=== PATIENT | male | born 1985 | race Caucasian/White ===

== ENCOUNTER 2017-01-26 08:13 | Inpatient (IN) | payer MEDICAID ==
[~2017-01-26] VITALS: Ht 165.1 cm; Wt 76.0 kg
[2017-01-26] MEDS ORDERED: IBUP-1547 PO (08:23)
[2017-01-26 08:40] LABS: BASOPHILS % (AUTO) 1.2 % (0.0-2.0); EOSINOPHILS % (AUTO) 1.3 % (1.0-6.0); HEMATOCRIT 49.2 % (41-53); HEMOGLOBIN 15.8 g/dL (13.5-17.5); LYMPHOCYTES # (AUTO) 2.7 K/uL (1.0-4.8); LYMPHOCYTES % (AUTO) 33.3 % (22.0-44.0); MEAN CORPUSCULAR HEMOGLOBIN 29.2 pg (26.0-34.0); MEAN CORPUSCULAR HGB CONC 32.1 G/dL (31.0-37.0); MEAN CORPUSCULAR VOLUME 91 fL (80-100); MONOCYTES # (AUTO) 0.6 K/uL (0.1-1.0); MONOCYTES % (AUTO) 7.2 % (2.0-9.0); NEUTROPHILS # (AUTO) 4.6 K/uL (1.8-7.7); PLATELET COUNT (AUTO) 314 K/uL (150-450); RED BLOOD CELL COUNT(AUTO) 5.41 MIL/uL (4.50-5.90); RED CELL DISTRIBUTION WIDTH 12.6 % (11.5-14.5); WHITE BLOOD COUNT (AUTO) 8.1 K/uL (4.5-11.0)
[2017-01-26 08:51] LABS: ANION GAP 9 mmol/L (8-16); CALCIUM, TOTAL 8.9 mg/dL (8.8-10.5); CARBON DIOXIDE 28 mmol/L (22-29); CHLORIDE 100 mmol/L (98-107); CREATININE 0.96 mg/dL (0.60-1.30); GLOMERULAR FILTR. RATE CALC > 60 mL/min (>60); POTASSIUM 3.9 mmol/L (3.5-5.1); SODIUM SERUM 137 mmol/L (136-145); UREA NITROGEN, BLOOD 19 mg/dL (7-18)
[2017-01-26 08:58] LABS: ALANINE AMINOTRANSFERASE 58 U/L (12-78); ALBUMIN 4.2 g/dL (3.4-5.0); ASPARTATE AMINOTRANSFERASE 22 U/L (15-37); BILIRUBIN,TOTAL 0.6 mg/dL (0.1-1.0); TOTAL PROTEIN, SERUM 8.4 g/dL (6.4-8.2)
[2017-01-26] MEDS ORDERED: SODIUM CHLORIDE 0.9% 1,000 ML IV ONE (09:15)
[2017-01-26] MEDS ORDERED: ONDANSETRON HCL 4 MG/2 ML VIAL IVP PRN ×2 (09:15→11:00)
[2017-01-26] MEDS ORDERED: MORPHINE SULFATE 4 MG/ML SYRINGE IVP PRN (09:15)
[2017-01-26] MEDS ORDERED: SODIUM CL IRRIG SOLN BAG 3,000 ML IRRIG ONE (09:33)
[2017-01-26] MEDS: BUPIVACAINE HCL/PF 0.5% 30 ML VIAL ONE ×2 (10:12→11:30)
[2017-01-26] MEDS ORDERED: MORPHINE SULFATE 2 MG/ML SYRINGE IVP PRN (11:00)
[2017-01-26] MEDS ORDERED: HYDROCODONE/ACETAMINOPHEN 5-325 MG TABLET PO PRN (11:00)
[2017-01-26] MEDS ORDERED: ACETAMINOPHEN 325 MG TABLET PO PRN (11:00)
[2017-01-26] MEDS ORDERED: BISACODYL 10 MG RECTAL RECTAL SUPPOSITORY PR PRN (11:00)
[2017-01-26] MEDS ORDERED: MAGNESIUM HYDROXIDE SUSPENSION 30 ML UDCUP PO PRN (11:00)
[2017-01-26] MEDS ORDERED: ZOLPIDEM TARTRATE 5 MG TABLET PO PRN ×2 (11:00→12:00)
[2017-01-26] MEDS ORDERED: RINGERS SOLUTION,LACTATED 1,000 ML IV ONE (11:07)
[2017-01-26] MEDS ORDERED: CYCLOBENZAPRINE HCL 10 MG TABLET PO PRN (11:15)
[2017-01-26] MEDS ORDERED: FentaNYL CITRATE-PF 100 MCG/2 ML VIAL IVP PRN ×2 (11:15→12:00)
[2017-01-26] MEDS ORDERED: MEPERIDINE-PF 25 MG/ML SYRINGE IVP PRN (11:15)
[2017-01-26] MEDS ORDERED: MUPIROCIN CALCIUM 2% 22 GM OINTMENT ONE (11:33)
[2017-01-26] MEDS ORDERED: MEPERIDINE-PF 25 MG/ML SYRINGE ONE (12:00)
[2017-01-26] MEDS ORDERED: MIDAZOLAM HCL 2 MG/2 ML VIAL IVP ONE (12:00)
[2017-01-26] MEDS ORDERED: HYDROmorphone 2 MG/ML SYRINGE IVP ONE (12:00)
[2017-01-26] MEDS ORDERED: FentaNYL CITRATE-PF 250 MCG/5 ML VIAL IVP ONE (12:00)
[2017-01-26] MEDS ORDERED: OxyCODONE HCL/ACETAMINOPHEN 5-325 MG TABLET PO PRN (12:00)
[2017-01-26] MEDS: HYDROmorphone 2 MG/ML SYRINGE IVP PRN ×6 (12:10→23:32)
[2017-01-26] MEDS ORDERED: ACETAMINOPHEN 1000 MG/ISO-OSM 100 ML IV ONE (12:40)
[2017-01-26] MEDS: ACETAMINOPHEN 1000 MG/ISO-OSM 100 ML IV SCH ×2 (12:42→18:57)
[2017-01-26 13:30] VITALS: BP 141/85
[2017-01-26] MEDS: HEPARIN SODIUM,PORCINE 5,000 UNITS/ML VIAL SQ SCH ×2 (15:47→23:32)
[2017-01-26 16:00] VITALS: BP 131/74
[2017-01-26] MEDS: CeFAZolin 1 GM/DEXTROSE 50 ML IV SCH (17:11)
[2017-01-26 19:30] VITALS: BP 144/87
[2017-01-26] MEDS: OXYGEN THERAPY IH SCH (20:00)
[2017-01-26] MEDS: DOCUSATE SODIUM 100 MG CAPSULE PO SCH (20:11)
[2017-01-26 23:36] VITALS: BP 148/90
[2017-01-27] VITALS (7 sets, daily range): BP systolic 118–149; BP diastolic 72–94
[2017-01-27] MEDS: CeFAZolin 1 GM/DEXTROSE 50 ML IV SCH (01:46)
[2017-01-27] MEDS: ACETAMINOPHEN 1000 MG/ISO-OSM 100 ML IV SCH ×2 (03:12→11:55)
[2017-01-27] MEDS: HYDROmorphone 2 MG/ML SYRINGE IVP PRN ×3 (03:21→15:18)
[2017-01-27] MEDS: OXYGEN THERAPY IH SCH (08:00)
[2017-01-27] MEDS ORDERED: PANTOPRAZOLE SODIUM 40 MG DR TABLET PO SCH (09:00)
[2017-01-27] MEDS ORDERED: ENOXAPARIN SODIUM 40 MG/0.4 ML PF SYRINGE SQ SCH (09:00)
[2017-01-27] MEDS: DOCUSATE SODIUM 100 MG CAPSULE PO SCH (09:24)
[2017-01-27] MEDS: HEPARIN SODIUM,PORCINE 5,000 UNITS/ML VIAL SQ SCH ×2 (09:31→17:33)
[2017-01-27] MEDS ORDERED: HYDR-309 PO (15:10)
[2017-01-27] MEDS ORDERED: ASA3 PO (15:12)
[2017-01-27] MEDS ORDERED: PROPOFOL 1% 20 ML VIAL IVP ONE (20:09)
[2017-01-27] MEDS ORDERED: ROCURONIUM BROMIDE 10 MG/ML 5 ML VIAL IVP ONE (20:09)
[2017-01-27] MEDS ORDERED: ONDANSETRON HCL 4 MG/2 ML VIAL IVP ONE (20:09)
[2017-01-27] MEDS ORDERED: LIDOCAINE HCL/PF 2% 5 ML VIAL IM ONE (20:09)
[2017-01-27] MEDS ORDERED: METOCLOPRAMIDE HCL 5 MG/ML 2 ML VIAL IVP ONE (20:09)
[2017-01-27] MEDS ORDERED: GLYCOPYRROLATE 0.2 MG/ML VIAL IM ONE (20:09)
[2017-01-27] MEDS ORDERED: NEOSTIGMINE METHYLSULFATE 1 MG/ML 10 ML VIAL IVP ONE (20:09)
[2017-01-27] MEDS ORDERED: SUCCINYLCHOLINE CHLORIDE 20 MG/ML 10 ML VIAL IVP ONE (20:09)
== END 2017-01-27 20:10 | disposition home or self-care (01) | DRG 313 ==
LOC: EMS 08:16 → 4E 09:20
PROVIDERS: ADMIT Internal Medicine; ATTEND Internal Medicine
PROC: 0QC Lower Bones, Extirpation (ICD-10-PCS; 2017-01-26)
PROC: 0QUF07Z Supplement Left Patella with Autologous Tissue Substitute, Open Approach (ICD-10-PCS; 2017-01-26)
PROC: 0QSD04Z Reposition Right Patella with Internal Fixation Device, Open Approach (ICD-10-PCS; principal; 2017-01-26 10:04)
DX: S82.001A Unspecified fracture of right patella, initial encounter for closed fracture (principal); Z79.1 Long term (current) use of non-steroidal anti-inflammatories (NSAID); Z59.0 Homelessness; W11.XXXA Fall on and from ladder, initial encounter; Y93.89 Activity, other specified; Y92.89 Other specified places as the place of occurrence of the external cause; Y99.8 Other external cause status
CPT/HCPCS: 87081; 97116; 97161; 97530; 99285; J0131; J0330; J0690; J1170; J1644; J2175; J2250; J2405; J2704; J2765; J3010; J3490; J7030; J7120